=== PATIENT | female | born 1950 | race Caucasian/White ===

== ENCOUNTER 2024-06-13 10:35 | Emergency (ER) | payer BC, MEDICAID ==
[~2024-06-13] VITALS: Ht 175.3 cm; Wt 65.5 kg
[2024-06-13 10:41] VITALS: TEMP 98.3
[2024-06-13 12:07] VITALS: BP 102/62; PULSE 68; RESP 16; O2SAT 97
== END 2024-06-13 12:09 | disposition home or self-care (01) ==
LOC: ER 10:36
DX: D22.5 Melanocytic nevi of trunk (principal); Z88.1 Allergy status to other antibiotic agents
CPT/HCPCS: 99281

== ENCOUNTER 2024-08-31 07:42 | Emergency (ER) | payer BC, MEDICAID ==
[~2024-08-31] VITALS: Ht 172.7 cm; Wt 67.2 kg
[2024-08-31 07:48] VITALS: TEMP 97.3
[2024-08-31 09:47] LABS: BASOPHILS % (AUTO) 0.2 % (0-1); EOSINOPHILS # (AUTO) 0.1 X10'3 (0-0.9); EOSINOPHILS % (AUTO) 1.5 % (0-6); HEMOGLOBIN 12.7 g/dl (12.0-16.0); LYMPHOCYTES # (AUTO) 1.7 X10'3 (1.1-4.8); LYMPHOCYTES % (AUTO) 17.3 % (21-51); MEAN CORPUSCULAR HEMOGLOBIN 32.5 PG (27.0-31.0); MEAN CORPUSCULAR HGB CONC 34.2 g/dL (33.0-36.5); MEAN CORPUSCULAR VOLUME 94.9 FL (78-98); MEAN PLATELET VOLUME 8.2 FL (7.4-10.4); MONOCYTES # (AUTO) 0.7 X10'3 (0-0.9); MONOCYTES % (AUTO) 7.2 % (2-12); NEUTROPHILS # (AUTO) 7.3 X10'3 (1.8-7.7); NEUTROPHILS % (AUTO) 73.8 % (42-75); PLATELET COUNT 312 X10'3 (140-440); RED CELL DISTRIBUTION WIDTH 12.6 % (11.5-14.5); WHITE BLOOD COUNT 9.9 X10'3 (4.5-11.0)
[2024-08-31 10:01] LABS: ALBUMIN 3.6 G/DL (3.4-5.0); ALBUMIN/GLOBULIN RATIO 1.1 (1.1-1.5); ALKALINE PHOSPHATASE 64 IU/L (46-116); ANION GAP 7 (8-16); ASPARTATE AMINO TRANSFERASE 14 U/L (10-37); BILIRUBIN,TOTAL 0.7 MG/DL (0.1-1.0); BLOOD UREA NITROGEN 26 MG/DL (7-18); BUN/CREATININE RATIO 26.3 (10.0-20.0); CHLORIDE 105 MMOL/L (99-107); CREATININE 0.99 MG/DL (0.40-0.90); GLUCOSE 93 MG/DL (70-104); LIPASE 27 U/L (16-77); POTASSIUM 3.9 MMOL/L (3.5-5.1); SODIUM 139 MMOL/L (135-145); TOTAL CARBON DIOXIDE 26.7 MMOL/L (24-32); eCRCL 50 ML/MIN; eGFR 55 ML/MIN
[2024-08-31 10:20] LABS: ALANINE AMINOTRANSFERASE 19 U/L (12-78)
[2024-08-31] MEDS ORDERED: OMEP40CA21 PO (11:24)
[2024-08-31 11:29] VITALS: BP 142/86; PULSE 72; RESP 18; O2SAT 99
== END 2024-08-31 11:30 | disposition home or self-care (01) ==
LOC: ER 07:42
DX: R10.10 Upper abdominal pain, unspecified (principal); Z88.1 Allergy status to other antibiotic agents
CPT/HCPCS: 36415; 71045; 80053; 83690; 84484; 85025; 93005; 99285